=== PATIENT | male | born 1995 | race Hispanic/Latino ===

== ENCOUNTER 2020-02-29 18:07 | Emergency (ER) | payer SELFPAY ==
[~2020-02-29 18:07] MED LIST: Iopamidol-370 76% 500 ML 1 ML ONE
[2020-02-29 19:30] LABS: Bilirubin Negative (Negative); Blood, Urine Negative (Negative); Clarity Turbid (Clear); Glucose, Urine (Dipstick) Normal (Negative); Ketone, Urine Negative (Negative); Leukocyte Negative Leu/uL (Negative); Nitrite Negative (Negative); Protein, Urine (Dipstick) Negative (Neg-Trace); Urobilinogen Normal mg/dL (Less than 2); pH, Urine 7.5 (5.0-9.0)
[2020-02-29 19:47] LABS: #Basophils 0.1 thou/uL (0.0-0.2); #Eosinphils 0.2 thou/uL (0.0-0.7); #Lymphocytes 2.5 thou/uL (1.20-3.40); #Monocytes 0.5 thou/uL (0.11-0.59); #Neutrophils 4.4 thou/uL (1.40-6.50); %Basophils 1.1 % (0.0-1.0); %Eosinophils 2.2 % (0.0-10.0); %Lymphocytes 32.4 % (21.0-51.0); %Neutrophils 57.3 % (42.0-75.0); Hemoglobin 15.1 g/dL (14.0-18.0); Mean Corpuscular HGB CONC 34.1 g/dL (32.0-36.0); Mean Corpuscular Hemoglobin 29.9 pg (27.0-31.0); Mean Corpuscular Volume 87.8 fL (78.0-98.0); Mean Platelet Volume 7.7 fL (7.4-10.4); Platelet Count 367 thou/uL (130-400); RBC Distribution Width 11.5 % (11.5-14.5); Red Blood Cell (RBC) Count 5.05 mill/uL (4.70-6.10); White Blood Cell (WBC) Count 7.6 thou/uL (4.8-10.8)
[2020-02-29] MEDS ORDERED: Morphine 4 MG/ML VIAL ONE (19:55)
[2020-02-29] MEDS ORDERED: Ondansetron PF 4 MG/2 ML Vial ONE (19:55)
[2020-02-29 20:07] LABS: ALT (SGPT) 146 U/L (8-55); AST (SGOT) 51 U/L (5-34); Albumin 4.9 g/dL (3.5-5.0); Alkaline Phosphatase 89 U/L (40-110); Anion Gap 14 mmol/L (10-20); BUN (Urea Nitrogen) 20 mg/dL (8.9-20.6); Bilirubin, Total 0.5 mg/dL (0.2-1.2); Calc. Creatinine Clearance 0 mL/min (70-130); Calcium 9.6 mg/dL (7.8-10.44); Carbon Dioxide 27 mmol/L (22-29); Chloride 102 mmol/L (98-107); Estimated GFR-MDRD Greater than 90; Globulin 3.5 g/dL (2.4-3.5); Glucose 115 mg/dL (70-105); Potassium 3.5 mmol/L (3.5-5.1); Protein, Total 8.4 g/dL (6.0-8.3); Sodium 139 mmol/L (136-145)
--- NOTE | 2020-02-29 20:53 | CT ---
CT ABDOMEN AND PELVIS WITH IV CONTRAST: 02/29/20 INDICATIONS: Abdominal pain. FINDINGS: The lung bases are clear. The liver, spleen, and pancreas unremarkable. Stomach and duodenum unremarkable. Adrenal glands normal. Kidneys unremarkable. The small bowel loops appear normal. The appendix is identified and is unremarkable with no evidence of inflammation. Colon is unremarkable. Aorta appears normal. There are nonspecific retroperitoneal periaortic lymph nodes which are subcent imeter. Nonspecific mesenteric lymph nodes are also seen with a right lower quadrant mesenteric node measuring up to 1.2 cm. There are other scattered right mesenteric lymph nodes measuring up to 1.0 cm. Osseous structures unremarkable. IMPRESSION: 1. Nonspecific mesenteric and retroperitoneal lymph nodes. Mesenteric adenitis might be conside red clinically. 2. No other evidence of acute process. POS: [facility]
== END 2020-02-29 21:40 | disposition home or self-care (01) ==
LOC: ERS 18:07
DX: I88.0 Nonspecific mesenteric lymphadenitis (principal); R19.00 Intra-abdominal and pelvic swelling, mass and lump, unspecified site
CPT/HCPCS: 36415; 74177; 80053; 81003; 83605; 83690; 85025; 96374; 96375; J2270; J2405; Q9967